=== PATIENT | male | born 1960 | race Caucasian/White ===

== ENCOUNTER 2017-10-20 19:19 | Emergency (ER) | payer MEDICARE, MEDICAID ==
--- NOTE | 2017-10-20 19:36 | ED Physician Chart ---
ED Chief Complaint/HPI - Patient Information Date Seen:: 10/20/17 Time Seen:: 19:35 Chief Complaint:: Right knee laceration ED Past Medical History - Past Medical History Past Medical History: PUD/GERD Psychiatricy History: Dementia, Other (psychosis) Family Medical History - Family Member Mother History Unknown: Yes ED Assessment - Assessment Assessment/Comments:: Laceration repair Keflex 500mg po x 1 Tdap d/c B&C Keflex 500mg bid x 7days F/u PCP or return to ER if symptoms worsen Location:: Right anterior knee Laceration Type:: Simple Wound Length: 4 cm Comments: 3.0 prolene suture was used to have 2 vertical mattress sutures ED Septic Shock - . Is Septic Shock (SBP<90, OR Lactate>4 mmol\L) present?: No ED Reassessment (Disposition) - Reassessment Reassessment Condition:: Improved - Patient Disposition Discharge/Transfer:: Residential/Boarding Care ED Discharge Plan - Patient Disposition Admit/Discharge/Transfer: PT DISCHARGED HOME Instructions: Laceration Care, Adult Additional Instructions: follow up with your primary medical doctor EAR[facility] take prescribed medications as ordered Forms: Work Release Form
[2017-10-20] MEDS ORDERED: Bacitracin pkt 1 gm Pkt TP ONE (21:00)
--- NOTE | 2017-10-21 08:04 | Diagnostic Imaging Report ---
Exam: Right knee joint HISTORY: Right knee pain status post trauma Multiple views of right knee joint reviewed. The study demonstrates no evidence for acute fracture dislocation. The patella is intact there is no evidence for joint effusion. Linear calcification in the proximal right calf most likely represent the old infectious process. IMPRESSION: Essentially unremarkable examination of right knee joint.
== END 2017-10-20 21:35 | disposition home or self-care (01) ==
LOC: ER 19:19
DX: S81.011A Laceration without foreign body, right knee, initial encounter (principal); X58.XXXA Exposure to other specified factors, initial encounter; Y93.89 Activity, other specified; Y92.89 Other specified places as the place of occurrence of the external cause; Y99.8 Other external cause status; K21.9 Gastro-esophageal reflux disease without esophagitis; Z87.11 Personal history of peptic ulcer disease
CPT/HCPCS: 12002; 73562-TC-RT; J2001; Z7502; Z7610